=== PATIENT | male | born 1990 | race Hispanic/Latino ===

== ENCOUNTER 2019-01-11 20:11 | Inpatient (IN) | payer SELFPAY ==
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
--- NOTE | 2019-01-11 21:21 | ER ---
Nurse's Notes [facility] Name: Gabe King Age: 28 yrs Sex: Male : 1990 Arrival Date: 01/11/2019 Time: 20:14 Bed 17 Private MD: Ronn Bradley Diagnosis: Other synovitis and tenosynovitis, hand Presentation: 01/11 20:25 Presenting complaint: Patient states: RIGHT RING FINGER REDNESS, SWELLING, ROM LIMITED ak1 X3 WEEKS. PT FINISHED AUGMENTEN, PT FINISHED KEFLEX. Transition of care: patient was not received from another setting of care. Onset of symptoms is unknown. Risk Assessment: Do you want to hurt yourself or someone else? Patient reports no desire to harm self or others. Care prior to arrival: None. 20:25 Method Of Arrival: Ambulatory ak1 20:25 Acuity: BELINDA 3 ak1 21:45 Initial Sepsis Screen: Does the patient meet any 2 criteria? HR > 90 bpm. Does the tl2 patient have a suspected source of infection? Yes: Other: infection in right ring finger. Triage Assessment: 20:27 General: Appears in no apparent distress. Behavior is calm, cooperative. Pain: ak1 Complains of pain in dorsal aspect of middle phalanx of right ring finger, dorsal aspect of proximal phalanx of right ring finger and palmar aspect of proximal phalanx of right ring finger. Historical: - Allergies: 20:27 No Known Allergies; ak1 - Home Meds: 20:27 None [Active]; ak1 - PMHx: 20:27 None; ak1 - PSHx: 20:27 Knee surgery; Hernia repair; ak1 - Immunization history:: Adult Immunizations unknown, Last tetanus immunization: not indicated for visit today. - Social history:: Smoking status: Patient uses tobacco products, smokes one-half pack cigarettes per day. - Ebola Screening: : No symptoms or risks identified at this time. Screenin:44 Abuse screen: Denies threats or abuse. Nutritional screening: No deficits noted. tl2 Tuberculosis screening: No symptoms or risk factors identified. Fall Risk None identified. Assessment: 21:00 General: Appears in no apparent distress. uncomfortable, Behavior is calm, cooperative, tl2 appropriate for age. Pain: Complains of pain in palmar aspect of proximal phalanx of right ring finger. Neuro: Level of Consciousness is awake, alert, obeys commands, Oriented to person, place, time, situation. Cardiovascular: Denies chest pain. Respiratory: Airway is patent Respiratory effort is even, unlabored, Respiratory pattern is regular, symmetrical. GI: No signs and/or symptoms were reported involving the gastrointestinal system. : No signs and/or symptoms were reported regarding the genitourinary system. Derm: Skin is pink, warm \T\ dry. Wound noted palmar aspect of proximal phalanx of right ring finger Wound is red, swollen, hot, pt unable to extend affected finger. Musculoskeletal: Swelling present in palmar aspect of proximal phalanx of right ring finger. 21:26 Reassessment: Charge nurse attempting US IV access. tl2 Vital Signs: 20:27 BP 141 / 82; Pulse 109; Resp 18; Temp 98.7(TE); Pulse Ox 98% on R/A; Weight 108.86 kg ak1 (R); Height 5 ft. 10 in. (177.80 cm) (R); Pain 7/10; 23:20 BP 107 / 69; Pulse 90; Resp 18; Pulse Ox 100% on R/A; tl2 20:27 Body Mass Index 34.44 (108.86 kg, 177.80 cm) ak1 ED Course: 20:14 Patient arrived in ED. es 20:15 Ronn Bradley MD is Private Physician. es 20:27 Triage completed. ak1 20:27 Arm band placed on Patient placed in waiting room, Patient notified of wait time. ak1 20:37 Braulio Schmidt MD is Attending Physician. tw4 21:18 Gerardo Valdez MD is Hospitalizing Provider. tw4 21:24 Hand Right 2 View XRAY In Process Unspecified. EDMS 21:30 Inserted saline lock: 22 gauge in right antecubital area, using aseptic technique. tl2 Blood collected. placed by MALIK Hudson. 21:43 Renee Wagner RN is Primary Nurse. tl2 21:44 Patient has correct armband on for positive identification. Bed in low position. Call tl2 light in reach. Side rails up X 1. Adult w/ patient. 01/12 00:19 No provider procedures requiring assistance completed. Patient admitted, IV remains in tl2 place. Administered Medications: 01/11 22:14 Drug: Zosyn 3.375 grams Route: IVPB; Infused Over: 60 mins; Site: right antecubital; tl2 23:15 Follow up: IV Status: Completed infusion tl2 01/12 00:07 Drug: vancoMYCIN 1.5 grams Route: IVPB; Rate: calculated rate; Site: right antecubital; tl2 00:20 Follow up: IV Status: Infusion continued upon admission tl2 Outcome: 01/11 21:20 Decision to Hospitalize by Provider. tw4 01/12 00:19 Admitted to Med/surg accompanied by tech, family with patient, via wheelchair, room tl2 210, with chart, Report called to MALIK Aviles Condition: stable Discharge instructions given to patient, Instructed on the need for admit. 00:20 Patient left the ED. tl2 Signatures: Dispatcher [employer] Shiela Cosme Amber RN RN ak1 Renee Wagner RN RN tl2 Braulio Schmidt MD MD tw4
[2019-01-11 21:39] LABS: Absolute Lymphocytes (CBC) 1.8 K/uL (0.7-4.9); Absolute Monocytes 0.5 K/uL (0.1-1.3); Absolute Neutrophil 3.3 K/uL (1.8-8.0); Basophils % 1.4 % (0-1.3); Eosinophils % 3.8 % (0-4.4); Hematocrit 39.2 % (39.6-49.0); Lymphocytes % 30.4 % (15.3-44.8); MPV 7.6 fL (7.6-11.3); RBC Red Blood Cell Count 4.64 M/uL (4.33-5.43)
--- NOTE | 2019-01-11 21:41 | RAD REPORT ---
EXAM DESCRIPTION: RAD - Hand Right 2 View - 01/11/2019 9:24 pm CLINICAL HISTORY: r/o osteo;Pain Swelling and pain COMPARISON: <Comparisons> FINDINGS: Prominent soft tissue swelling affects the fourth finger. No evidence of osteomyelitis. No radiopaque foreign body. No fracture seen.
[2019-01-11 21:56] LABS: ALT/SGPT 50 U/L (12-78); AST/SGOT 23 U/L (15-37); Albumin 3.8 g/dL (3.4-5.0); Alkaline Phosphatase 73 U/L (45-117); BUN Blood Urea Nitrogen 12 mg/dL (7-18); Bicarbonate 26 mmol/L (21-32); Bilirubin Total 0.2 mg/dL (0.2-1.0); Glucose Level 119 mg/dL (74-106); Potassium 3.8 mmol/L (3.5-5.1); Protein, Total 7.5 g/dL (6.4-8.2); Sodium Level 142 mmol/L (136-145)
[2019-01-11] MEDS ORDERED: NA CHLORIDE 0.9% 250 ML ONE (22:03)
[2019-01-11] MEDS ORDERED: VANCOMYCIN 1 GM/VIAL ONE (22:03)
[2019-01-11] MEDS ORDERED: PIPER/TAZO/NS 3.375gm 3.375 GM/100 ML BAG ONE (22:03)
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
[2019-01-11] MEDS ORDERED: ONDANSETRON 4 MG/2 ML VIAL IV PRN (23:54)
[2019-01-12] MEDS: NA CHLORIDE 0.9% 1,000 ML IV SCH ×2 (00:42→09:54)
[2019-01-12] MEDS: KETOROLAC 30 MG/ML INJ IV PRN (00:42)
[2019-01-12] MEDS ORDERED: VANCOMYCIN 1 GM/250 ML BAG IV ONE (01:15)
[2019-01-12 01:22] LABS: Urine Appearance CLEAR; Urine Bilirubin NEGATIVE (NEG); Urine Blood NEGATIVE (NEG); Urine Color YELLOW; Urine Glucose NEGATIVE (NEG); Urine Protein NEGATIVE (NEG); Urine Specific Gravity 1.025 (1.005-1.030)
[2019-01-12 01:23] LABS: Urine Microscopic Reflex ORDER UMIC
[2019-01-12 01:53] LABS: Urine Bacteria <20 /HPF (NONE SEEN); Urine Culture Reflex Order REFLEXED; Urine RBC NONE SEEN /HPF (NONE SEEN)
[2019-01-12] MEDS ORDERED: PIPER/TAZO/NS 3.375gm 3.375 GM/100 ML BAG ONE (05:17)
[2019-01-12] MEDS ORDERED: PIPER/TAZO/NS 3.375gm 3.375 GM/100 ML BAG IVPB SCH ×3 (06:00→17:00)
[2019-01-12 06:02] LABS: Absolute Monocytes 0.6 K/uL (0.1-1.3); Absolute Neutrophil 2.5 K/uL (1.8-8.0); Basophils % 0.9 % (0-1.3); Eosinophils % 4.7 % (0-4.4); Hematocrit 38.2 % (39.6-49.0); Lymphocytes % 37.2 % (15.3-44.8); MPV 7.7 fL (7.6-11.3); Monocytes % 11.5 % (3.3-12.3); RBC Red Blood Cell Count 4.56 M/uL (4.33-5.43)
[2019-01-12 06:15] LABS: BUN Blood Urea Nitrogen 11 mg/dL (7-18); Bicarbonate 26 mmol/L (21-32); Glucose Level 144 mg/dL (74-106); Potassium 3.7 mmol/L (3.5-5.1); Sodium Level 143 mmol/L (136-145)
[2019-01-12] MEDS ORDERED: VANCOMYCIN 1 GM in NA CHLORIDE 0.9% 500 ML IVPB SCH (09:00)
[2019-01-12] MEDS ORDERED: Ringers Lactate 1,000 ML IV ONE (09:57)
[2019-01-12] MEDS ORDERED: PROPOFOL 200 MG/20 ML VIAL IV ONE (10:47)
[2019-01-12] MEDS ORDERED: FENTANYL CITR 100 MCG/2 ML ONE ×2 (10:47→11:26)
[2019-01-12] MEDS ORDERED: MIDAZOLAM HCL 2 MG/2 ML INJ ONE (10:48)
[2019-01-12] MEDS ORDERED: LIDOCAINE 1% MPF 2 ML AMPULE ONE (10:49)
[2019-01-12] MEDS ORDERED: MEPERIDINE HCL 50 MG/ML AMP IM PRN (11:41)
[2019-01-12] MEDS: MEPERIDINE HCL 50 MG/ML AMP ONE ×2 (12:15→12:17)
[2019-01-12] MEDS ORDERED: VANCOMYCIN 2 GM in NA CHLORIDE 0.9% 500 ML IVPB SCH (13:00)
[2019-01-12] MEDS: VANCOMYCIN 2 GM in NA CHLORIDE 0.9% 500 ML IVPB SCH ×2 (13:15→23:28)
[2019-01-12] MEDS: HYDROCODONE/APAP 10/325 TAB PO PRN ×2 (15:03→20:28)
[2019-01-12] MEDS ORDERED: Meropenem 500 MG VIAL IV SCH (17:00)
[2019-01-12] MEDS: Meropenem 500 MG in NA CHLORIDE 0.9% 100 ML IV SCH (17:06)
[2019-01-12] MEDS ORDERED: CEFEPIME 2 GM in NA CHLORIDE 0.9% 100 ML IV SCH (21:00)
--- NOTE | 2019-01-12 21:34 | PN ---
Date of Progress Note: 01/12/2019 Subjective: The patient is seen and examined. Chart reviewed and case discussed with RN and Dr. Ga. The patient went for I and D today. Tolerated procedure well. Complaining of pain. Medications: List reviewed. Physical Examination: Vital Signs: Temperature 97.9, heart rate 79, blood pressure 123/73, respirations 16, O2 98% on room air. General: Awake, alert and oriented x3, in some mild distress, ill-appearing male, obese, BMI 35.5. CV: S1 and S2. Regular rate and rhythm. Peripheral pulse is present. Respiratory: Moving air well bilaterally. No wheezing or stridor. Gastrointestinal: Abdomen is soft, nontender, nondistended. Positive bowel sounds. Extremities: No clubbing, cyanosis, or edema. Musculoskeletal: Right hand 4th finger edema. It is wrapped with some drainage through the bandage. Clean, dry, intact. Mild tenderness to palpation. Decreased range of motion. Neurologic: Nonfocal. Laboratory Data: Sodium 143, potassium 3.7, chloride 110, CO2 26, BUN 11, creatinine 0.86, glucose 144, calcium 8.2. WBC 5.5, H and H 13.2 and 38.2, platelets 298, neutrophils 45%. Cultures are pending. Assessment And Plan: A 28-year-old male with: 1. Tenosynovitis, right 4th finger. 2. Abscess of the right 4th finger, status post incision and drainage. 3. Fracture of the fourth digit, right hand. 4. Obesity Plan: Continue IV antibiotics. We will discontinue Zosyn, switch to cefepime due to risk of kidney dysfunction from simultaneous use of vanc and Zosyn. Follow up on cultures. Appreciate Dr. Ga's input. SA/MODL Voice ID: [id number] Report ID: [id number]
[2019-01-13] MEDS: Meropenem 500 MG in NA CHLORIDE 0.9% 100 ML IV SCH ×3 (01:25→17:45)
[2019-01-13] MEDS: HYDROCODONE/APAP 10/325 TAB PO PRN ×4 (01:33→20:17)
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
[2019-01-13] MEDS: KETOROLAC 30 MG/ML INJ IV PRN (05:28)
[2019-01-13 06:07] LABS: BUN Blood Urea Nitrogen 10 mg/dL (7-18); Bicarbonate 26 mmol/L (21-32); Glucose Level 123 mg/dL (74-106); Potassium 3.9 mmol/L (3.5-5.1); Sodium Level 140 mmol/L (136-145)
[2019-01-13 06:15] LABS: Absolute Lymphocytes (CBC) 2.2 K/uL (0.7-4.9); Absolute Monocytes 0.6 K/uL (0.1-1.3); Absolute Neutrophil 3.4 K/uL (1.8-8.0); Basophils % 0.7 % (0-1.3); Eosinophils % 4.7 % (0-4.4); Hematocrit 38.2 % (39.6-49.0); Lymphocytes % 33.9 % (15.3-44.8); MPV 7.8 fL (7.6-11.3); Monocytes % 8.6 % (3.3-12.3); RBC Red Blood Cell Count 4.56 M/uL (4.33-5.43)
[2019-01-13] MEDS: VANCOMYCIN 2 GM in NA CHLORIDE 0.9% 500 ML IVPB SCH (11:56)
--- NOTE | 2019-01-13 17:21 | P.PN ---
Subjective Date of Service: 01/13/19 Chief Complaint: tenosynovitis Subjective: No C/O voiced, Improving Patient seen and examined at bedside. Family at bedside. Chart reviewed and case discussed with Nursing staff and Dr. Ga. NAEON Pain well controlled. No complaints this morning. Review of Systems 10-point ROS is otherwise unremarkable Physical Examination - Vital Signs Temperature: 97.5 F Blood Pressure: 112/63 Pulse: 75 Respirations: 17 Pulse Ox (%): 95 - Physical Exam General: Alert, In no apparent distress, Oriented x3 HEENT: Atraumatic, PERRLA, EOMI Neck: Supple, JVD not distended Respiratory: Clear to auscultation bilaterally, Normal air movement Cardiovascular: Regular rate/rhythm, Normal S1 S2 Gastrointestinal: Normal bowel sounds, No tenderness Musculoskeletal: No tenderness Integumentary: Other (Middle finger bandaged, clean, dry and intact. No drainage noted on bandage.) Neurological: Normal speech, Normal tone, Normal affect Lymphatics: No axilla or inguinal lymphadenopathy - Studies Microbiology Data (last 24 hrs): 01/12/19 11:18 Wound - Right Finger Gram Stain - Final 01/12/19 11:18 Wound - Right Finger Gram Stain - Final Assessment And Plan - Current Problems (Diagnosis) (1) Abscess Current Visit: Yes Status: Acute (2) Tenosynovitis Current Visit: Yes Status: Acute - Plan This is a 28-year-old male with: Tenosynovitis, right middle finger. Abscess of the right middle finger, status post incision and drainage. Fracture of the third digit, right hand. Continue IV antibiotics with IV Cefepime and vancomycin. Discussed with Dr. Ga, plan for patient to return to OR on for closure. Follow up on cultures, pending.
[2019-01-13] MEDS: VANCOMYCIN 2.25 GM in NA CHLORIDE 0.9% 500 ML IVPB SCH (23:58)
[2019-01-14] MEDS: Meropenem 500 MG in NA CHLORIDE 0.9% 100 ML IV SCH ×3 (02:10→16:25)
[2019-01-14] MEDS: KETOROLAC 30 MG/ML INJ IV PRN (06:19)
[2019-01-14] MEDS: VANCOMYCIN 2.25 GM in NA CHLORIDE 0.9% 500 ML IVPB SCH ×2 (11:48→23:21)
[2019-01-14] MEDS: HYDROCODONE/APAP 10/325 TAB PO PRN ×2 (11:52→23:45)
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
--- NOTE | 2019-01-14 15:57 | P.PN ---
Subjective Date of Service: 01/14/19 Chief Complaint: tenosynovitis Subjective: No C/O voiced, Tolerating diet, Improving Patient seen and examined at bedside. Family at bedside. Chart reviewed and case discussed with Nursing staff and Dr. Ga. NAEON Pain well controlled. No complaints this morning. Continues to go downstairs to smoke. Review of Systems 10-point ROS is otherwise unremarkable Physical Examination - Vital Signs Temperature: 98.7 F Blood Pressure: 108/66 Pulse: 78 Respirations: 18 Pulse Ox (%): 96 - Physical Exam General: Alert, In no apparent distress, Oriented x3 HEENT: Atraumatic, PERRLA, EOMI Neck: Supple, JVD not distended Respiratory: Clear to auscultation bilaterally, Normal air movement Cardiovascular: Regular rate/rhythm, Normal S1 S2 Gastrointestinal: Normal bowel sounds, No tenderness Musculoskeletal: No tenderness Integumentary: No rashes, Other (bandage clean, dry and intact) Neurological: Normal speech, Normal tone, Normal affect Lymphatics: No axilla or inguinal lymphadenopathy - Studies Microbiology Data (last 24 hrs): 01/12/19 00:35 Clean Catch Urine [place] Count - Final <10,000 CFU/ML. 01/12/19 00:35 Clean Catch Urine - Final 01/12/19 11:18 Wound - Right Finger Gram Stain - Final Assessment And Plan - Current Problems (Diagnosis) (1) Abscess Current Visit: Yes Status: Acute (2) Tenosynovitis Current Visit: Yes Status: Acute (3) Nicotine dependence Current Visit: Yes Status: Chronic Qualifiers: Nicotine product type: cigarettes Substance use status: uncomplicated Qualified Code(s): F17.210 - Nicotine dependence, cigarettes, uncomplicated - Plan This is a 28-year-old male with: Tenosynovitis, right middle finger. Abscess of the right middle finger, status post incision and drainage. Fracture of the third digit, right hand. Continue IV antibiotics with IV Meropenem and vancomycin. Discussed with Dr. Ga, plan for patient to return to OR on for closure. Follow up on cultures, pending.
--- NOTE | 2019-01-14 21:32 | DS ---
The patient's wound is improving. Planned surgery tomorrow, n.p.o. at midnight, to debride and close , repair his tendon if possible. He will be discharged after that. JASON Voice ID: [id number] Report ID: [id number]
[2019-01-15] MEDS: Meropenem 500 MG in NA CHLORIDE 0.9% 100 ML IV SCH ×3 (02:43→17:40)
[2019-01-15 07:12] LABS: Absolute Lymphocytes (CBC) 2.1 K/uL (0.7-4.9); Absolute Monocytes 0.6 K/uL (0.1-1.3); Absolute Neutrophil 4.6 K/uL (1.8-8.0); Basophils % 0.6 % (0-1.3); Eosinophils % 3.7 % (0-4.4); Hematocrit 38.8 % (39.6-49.0); Lymphocytes % 27.3 % (15.3-44.8); MPV 7.6 fL (7.6-11.3); Monocytes % 8.5 % (3.3-12.3)
[2019-01-15 07:19] LABS: ALT/SGPT 51 U/L (12-78); AST/SGOT 28 U/L (15-37); Albumin 3.6 g/dL (3.4-5.0); Alkaline Phosphatase 70 U/L (45-117); BUN Blood Urea Nitrogen 8 mg/dL (7-18); Bicarbonate 28 mmol/L (21-32); Bilirubin Total 0.2 mg/dL (0.2-1.0); Glucose Level 112 mg/dL (74-106); Potassium 3.6 mmol/L (3.5-5.1); Protein, Total 7.5 g/dL (6.4-8.2); Sodium Level 140 mmol/L (136-145)
[2019-01-15] MEDS: HYDROCODONE/APAP 10/325 TAB PO PRN ×2 (11:41→17:39)
[2019-01-15] MEDS: VANCOMYCIN 2.25 GM in NA CHLORIDE 0.9% 500 ML IVPB SCH (11:42)
[2019-01-15] MEDS: Ringers Lactate 1,000 ML IV ONE ×2 (15:56→16:40)
[2019-01-15] MEDS ORDERED: PROPOFOL 200 MG/20 ML VIAL IV ONE (15:57)
[2019-01-15] MEDS ORDERED: MIDAZOLAM HCL 2 MG/2 ML INJ ONE (15:58)
[2019-01-15] MEDS ORDERED: LIDOCAINE 2% MPF 5 ML VIAL ONE (15:59)
[2019-01-15] MEDS ORDERED: FENTANYL CITR 100 MCG/2 ML ONE (15:59)
--- NOTE | 2019-01-15 17:47 | P.PN ---
Subjective Date of Service: 01/15/19 Chief Complaint: tenosynovitis Subjective: No new changes, No C/O voiced Patient seen and examined at bedside. Family at bedside. Chart reviewed and case discussed with Nursing staff and Dr. Ga. NAEON Pain well controlled. No complaints this morning. Continues to go downstairs to smoke. Review of Systems 10-point ROS is otherwise unremarkable Physical Examination - Vital Signs Temperature: 97.3 F Blood Pressure: 144/80 Pulse: 98 Respirations: 18 Pulse Ox (%): 92 - Physical Exam General: Alert, In no apparent distress, Oriented x3 HEENT: Atraumatic, PERRLA, EOMI Neck: Supple, JVD not distended Respiratory: Clear to auscultation bilaterally, Normal air movement Cardiovascular: Regular rate/rhythm, Normal S1 S2 Gastrointestinal: Normal bowel sounds, No tenderness Musculoskeletal: No tenderness Integumentary: Skin breakdown, Skin lesion Neurological: Normal speech, Normal tone, Normal affect Lymphatics: No axilla or inguinal lymphadenopathy - Studies Microbiology Data (last 24 hrs): 01/12/19 11:18 Wound - Right Finger Gram Stain - Final 01/12/19 11:18 Wound - Right Finger Culture & Sensitivity - Final Assessment And Plan - Current Problems (Diagnosis) (1) Abscess Current Visit: Yes Status: Acute (2) Tenosynovitis Current Visit: Yes Status: Acute (3) Nicotine dependence Current Visit: Yes Status: Chronic Qualifiers: Nicotine product type: cigarettes Substance use status: uncomplicated Qualified Code(s): F17.210 - Nicotine dependence, cigarettes, uncomplicated - Plan This is a 28-year-old male with: Tenosynovitis, right middle finger. Abscess of the right middle finger, status post incision and drainage. Fracture of the third digit, right hand. Continue IV antibiotics with IV Meropenem and vancomycin. Discussed with Dr. Ga, pending patient to return to OR today for closure. Follow up on cultures, pending.
--- NOTE | 2019-01-15 17:51 | P.PN ---
Date of Service: 01/15/19 4:00 pm Patient was angry that surgery had not gotten him yet. He was upset, told nurse that he's ready to get out of here. When I entered the home, patient was packing up his stuff. Discussed with patient the importance of this surgery as if he left AMA, he may risk infecting her whole hand and possible amputation. To this patient responded "Whatever, Im never going to be able to use my finger , may as well chop of my hand. Whatever, I need a smoke" as he walked past me and out the room. He did not take his things with him. He has been previously educated/counseled on smoking cessation.
--- NOTE | 2019-01-19 09:54 | OP ---
Surgeon: Timoteo Ga MD Preoperative Diagnosis: Open wound of the right ring finger. Postoperative Diagnosis: Open wound of the right ring finger. Procedure: Debridement of skin and subcutaneous tissue, flap closure . Anesthesia: General. Procedure In Detail: After satisfactory induction of general anesthesia, the right hand was prepped with Betadine scrub, Betadine paint. Dry sterile drapes were placed in the usual manner. The arm wa s elevated. Tourniquet was inflated to 250 mmHg. Hand was placed on the [place] table. The incisio n was opened and debrided with a curette forceps. The patient's open joint portions of th e extensor tendon were missing either from the injury initially or reapproximated. After jet lavage, wound was closed by a flap advancement using 4-0 Prolene, vertical mattress an d half buried mattress simple sutures. Dressing of Xeroform, 2 inch Memo in extension. The patient tolerated the procedure well, returned to recovery room. JESSI/ACE Voice ID: [id number] Report ID: [id number]
== END 2019-01-15 20:49 | disposition home or self-care (01) | DRG 464 ==
LOC: ER 20:11 → ERHOLD 22:10 → 2ND 01-12 00:06 → OBSVTOIN 01-12 17:05
PROVIDERS: ADMIT Internal Medicine; ATTEND Family Medicine
PROC: 0PBT0ZZ Excision of Right Finger Phalanx, Open Approach (ICD-10-PCS; 2019-01-12)
PROC: 0JBJ0ZZ Excision of Right Hand Subcutaneous Tissue and Fascia, Open Approach (ICD-10-PCS; 2019-01-15)
PROC: 0HXFXZZ Transfer Right Hand Skin, External Approach (ICD-10-PCS; principal; 2019-01-15 13:00)
DX: M65.9 Synovitis and tenosynovitis, unspecified (principal); L02.511 Cutaneous abscess of right hand; F17.210 Nicotine dependence, cigarettes, uncomplicated; S62.604A Fracture of unspecified phalanx of right ring finger, initial encounter for closed fracture; Y04.0XXA Assault by unarmed brawl or fight, initial encounter; Y93.89 Activity, other specified; Y92.9 Unspecified place or not applicable
CPT/HCPCS: 36415; 80048; 80053; 80202; 81003; 81015; 82565; 85025; 87040; 87070; 87075; 87086; 87088; 87205; 88304; 96365; 96375; 99285; G0378; J2001; J2175; J2250; J2543; J2704; J3010; J3370; J7030